=== PATIENT | male | born 1955 | race Caucasian/White ===

== ENCOUNTER 2023-11-02 12:03 | Emergency (ER) | payer MEDICARE, OTHER, SELFPAY ==
[2023-11-02 12:14] VITALS: BP 163/79; PULSE 63; RESP 18; TEMP 36.3; O2SAT 98; BMI 33.8
--- NOTE | 2023-11-02 12:14 | ED_ITS ---
HPI - General Adult General Chief complaint: Abdominal Pain Stated complaint: multiple complaints Time Seen by Provider: 11/02/23 12:27 Source: patient Mode of arrival: ambulatory Limitations: other (not forthcoming) History of Present Illness ED Provider: JAMIE ESCOBEDO narrative: 68 yo male with PMH of DM and ascites that he states he has from diabetes and not cirrhosis then start to talk about a paracentesis 10 years ago that only took 2 hours and they removed 8 liters without needing albumin or infusion and I should be able to make a phone call to get old labs. He then states if I do not do what he wants he is going to leave and goes off on tangents about his sick dog and needing to drive his family around. He states I am not helping him. I told him I am by not rushing into a procedure to hurt you or doing it without precautions or treating you correctly after. He then states you would do it wrong anyways. I did ask him about ETOH or hep C he denies both states he never saw a GI doctor but he notes medications that most cirrhotics would be on. He is withholding of a lot of information. He states he needs the fluid gone today because it is making his chronic hernias hurt but notes he has paracentesis due on the . He denies being on thinners but then states he can't name all of his medications. He is very demanding and unrealistic. When he found out he could be in the ED with workup for 4 to 6 hours for total time of labs/procedure/post procedure monitoring he demanded his line be removed and refused all papers. complaint: ascites Onset (ago): week(s) Location: abdomen Radiation: non-radiation Severity: severe Quality: dull Pain Consistency: intermittent Relieving factors: none Exacerbating factors: none Associated symptoms: denies other symptoms Treatments prior to arrival: none Related Data Allergies Allergy/AdvReac Type Severity Reaction Status Date / Time No Known Allergies Allergy Verified 11/02/23 12:18 Review of Systems 2 Review of Systems: Constitutional : No Weight loss, No Fever, No Chills ENT/Mouth : No sore throat, No Rhinorrhea Eyes: No Swelling, No Redness Cardiovascular : No Chest Pain, No SOB, NoEdema Respiratory : No Cough, No Sputum, No Wheezing Gastrointestinal : no Nausea, no Vomiting, no Diarrhea, no abdominal Pain, No Hematochezia, No Melena, large volume ascites Genitourinary : No Dysuria, No Urinary Frequency, No Hematuria, No Urgency Musculoskeletal : No joint pain, No Myalgias, No Joint Swelling Skin : No Skin Lesions, No rash Neuro : No Weakness, No Numbness, No Dizziness, No Headache Psych : No Anxiety/Panic, No Depression All other systems reviewed and are negative. FOR[facility]LY [facility], [facility] Past Medical History Attestation statement: The following information was validated with the patient. Source: old records reviewed Medical History (Updated 11/02/23 @ 13:07 by Xochitl Liriano DO) Diabetes Ascites Social History Social History (Updated 11/02/23 @ 13:02 by Xochitl Liriano DO) Alcohol intake: current Alcohol intake frequency: holidays/special occasions only Smoked in Last 30 Days: No Use of substances other than those prescribed or required for medical reasons: No Advance Directives: No Advance Directives Information Provided: Yes Do you have a plan to hurt others: No Plan Physical Exam ED Vital Signs: Vital Signs - 24 hr 11/02/23 12:14 11/02/23 13:10 Temperature 97.4 F 97.4 F Pulse Rate 63 79 Respiratory Rate 18 18 Blood Pressure 163/79 H 145/78 H Pulse Oximetry 98 97 Oxygen Delivery Method Room Air Room Air BMI result Body Mass Index 33.8 Appearance: Alert. Oriented X3. No acute distress. Dictating his care to the point of asking for paracentesis without lab results, IV access, or albumin infusion Eyes: Pupils equal, round and reactive to light. ENT: Pharynx normal. Neck: Normal inspection. Neck supple. CVS: Normal heart rate and rhythm. Pulses normal. Respiratory: No respiratory distress. Breath sounds normal. Abdomen: No ttp large volume ascites : bilateral soft reducible inguinal hernias Skin: Skin warm and dry. mild jaundice skin color. Normal skin turgor. Extremities: No lower extremity edema. Neuro: Oriented X 3. No motor deficit. No sensory deficit. Course Course Course Narrative: This is a Rapid Medical Exam performed in triage by Sangita Carbajal PA-C. Full HPI, ROS and PE to be performed by primary ED provider. 68 year-old M w/ PMHx presenting to the ED c/o hernia, DM, c/o abdominal pain & crushing pain in testicles from weight of abdomen. Also told he has a blood clot in vein unsure what vein at [facility] last week where he was seen for similar sx. States scheduled him for abdominal drainage on 11/14/23 however pain is too bad to wait. Denies ETOH use. PE: +abdominal ascites. nontender Plan: Labs, UA Medical Decision Making Medical Decision Making MDM Narrative: 68 yo male with DM and also mentions he is on lasix and spironolactone he is not very forthcoming and is edgy during the interview. He reports with his large volume of ascites 10 years ago he came to this ER we drained it without labs removed 8L and he did not receive any fluids or albumin. He wants the same thing done today and if we cannot do that we are wasting his time and he is leaving. I tried to reason with him and explain we need labs, paracentesis and likely albumin post removal of fluid given the large volume it will be. He refuses and states he is not being helped here and is walking out. He is alert and oriented x 3. He reports he has walked out of [facility] as well for other issues. It is unreasonable to do large volume paracentesis without labs, IV access which he demanded be removed and no repletion of albumin as indicated for > 5L. He then states that it would be done wrong if I did it and that legal issues are hindering his care. At this time he is not a harm to himself or others he is not altered I do not see any signs of encephalopathy he just refuses to wait in the ED for more than 4 hours for his care. Can leave AMA - KOFI Ahn witnessed entire conversation Differential Diagnosis Differential Diagnoses: The differential diagnosis associated with the presentation includes large volume paracentesis, advanced cirrhosis Admission/Observation Consideration of admission/observation: Escalation of care including admission/observation considered patient refuses Lab Data [facility] Lab Attestation statement: I reviewed the patient's lab results. only CBC left AMA 11/02/23 12:38 11/02/23 12:38 Labs: Lab Results 11/02/23 Range/Units 12:38 WBC 6.0 (4.8-10.8) X10*3/uL RBC 4.54 L (4.60-5.80) X10*6/uL Hgb 14.4 (14.0-18.0) g/dl Hct 40.8 L (42.0-52.0) % MCV 89.9 (80.0-98.0) fL MCH 31.7 (27.0-33.0) pg MCHC 35.3 (31.0-36.0) g/dl RDW 13.3 (11.0-16.0) % Plt Count 79 L (160-400) X10*3/uL MPV 10.9 (9.4-12.4) fL Immature Gran % (Auto) 0.7 H (0.0-0.4) % Neut % (Auto) 84.3 H (45-73) % Lymph % (Auto) 8.7 L (20-40) % [place] % (Auto) 5.4 (2-11) % Eos % (Auto) 0.7 (0-4) % Baso % (Auto) 0.2 (0-2) % Lymph # (Auto) 0.5 L (1.2-4.9) X10*3/uL [place] # (Auto) 0.3 (0.1-1.2) X10*3/uL Eos # (Auto) 0.0 (0.0-0.4) X10*3/uL Baso # (Auto) 0.0 (0.0-0.2) X10*3/uL Abs Immat Gran (auto) 0.04 H (0.00-0.03) X10*3/uL Absolute Neuts (auto) 5.0 (2.0-8.3) x10*3/uL Absolute Nucleated RBC 0.000 (0.0-0.012) X10*3/uL Nucleated RBC % (auto) 0.0 (0.0-0.2) /100WBC PT 13.5 H (11.1-13.3) SEC INR 1.1 (0.9-1.1) Sodium 134 L (135-145) mmol/L Potassium 4.3 (3.3-5.1) mmol/L Chloride 96 (96-108) mmol/L Carbon Dioxide 26 (22-29) mmol/L Anion Gap 16 (12-20) BUN 13 (9-16) mg/dL Creatinine 0.79 (0.5-1.4) mg/dL Estim Creat Clear Calc 99.7 Estimated GFR > 60 Random Glucose 197 H (60-115) mg/dL Calcium 9.5 (8.4-10.2) mg/dL Magnesium 1.8 (1.6-2.6) mg/dL Total Bilirubin 1.3 H (0.0-1.0) mg/dL Direct Bilirubin 0.3 (0.0-0.5) mg/dL AST 27 (5-37) U/L ALT 16 (0-40) U/L Alkaline Phosphatase 221 H (39-117) U/L Ammonia 29 (13-55) umol/L B-Natriuretic Peptide 54 (<100) pg/mL Total Protein 6.8 (6.5-8.0) g/dL Albumin 3.8 (3.5-5.0) g/dL Lipase 22 (8-78) U/L Ethyl Alcohol < 10 mg/dL Independent Interpretation I performed an independent interpretation of an: Ultrasound (refused) Tests considered The following testing was considered but not selected: US and paracentesis refused both Discharge Plan Discharge Clinical Impression: Abdominal ascites Qualifiers: Ascites type: other type Qualified Code(s): R18.8 - Other ascites Patient Disposition: Left Against Medical Advice Instructions: Ascites (ED), Against Medical Advice (ED) Additional Instructions: you were offered labs, ultrasound and paracentesis. It was also recommended to get an infusion of albumin to prevent post paracentesis hypotension. you declined all therapies and work up. I advise you to contact your doctor and follow up as your presentation is very concerning. you can return at any time Interventions: ED Discharge Assessment Last Done: 11/02/23 13:10 Discharge Date/Time: 11/02/23 13:11 Print Language: Slovenian
[2023-11-02 12:43] LABS: MANUAL DIFF FLAG NO
[2023-11-02 12:46] LABS: Basophils Percent Auto 0.2 % (0-2); Eosinophils Percent Auto 0.7 % (0-4); Hematocrit 40.8 % (42.0-52.0); Hemoglobin 14.4 g/dl (14.0-18.0); Imm Gran Abs Auto 0.04 X10*3/uL (0.00-0.03); Imm Gran Pct Auto 0.7 % (0.0-0.4); Lymphocytes Absolute Auto 0.5 X10*3/uL (1.2-4.9); Lymphocytes Percent Auto 8.7 % (20-40); Mean Corpuscular HGB Conc 35.3 g/dl (31.0-36.0); Mean Corpuscular Hemoglobin 31.7 pg (27.0-33.0); Mean Corpuscular Volume 89.9 fL (80.0-98.0); Mean Platelet Volume 10.9 fL (9.4-12.4); Monocytes Absolute Auto 0.3 X10*3/uL (0.1-1.2); Monocytes Percent Auto 5.4 % (2-11); Neutrophils Percent Auto 84.3 % (45-73); Red Blood Count 4.54 X10*6/uL (4.60-5.80); Red Cell Distribution Width 13.3 % (11.0-16.0)
[2023-11-02 12:49] LABS: Platelet Count 79 X10*3/uL (160-400)
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
[2023-11-02 12:56] LABS: INTERNATIONAL NORM RATIO 1.1 (0.9-1.1); Prothrombin Time 13.5 SEC (11.1-13.3)
[2023-11-02 13:10] VITALS: BP 145/78; PULSE 79; RESP 18; TEMP 36.3; O2SAT 97
[2023-11-02 13:29] LABS: Ammonia 29 umol/L (13-55)
[2023-11-02 13:36] LABS: Alanine Aminotransferase 16 U/L (0-40); Albumin Level 3.8 g/dL (3.5-5.0); Alkaline Phosphatase 221 U/L (39-117); Anion Gap 16 (12-20); Aspartate Amino Transferase 27 U/L (5-37); Bilirubin Direct 0.3 mg/dL (0.0-0.5); Bilirubin Total 1.3 mg/dL (0.0-1.0); Blood Urea Nitrogen 13 mg/dL (9-16); Calcium 9.5 mg/dL (8.4-10.2); Carbon Dioxide 26 mmol/L (22-29); Chloride 96 mmol/L (96-108); Creatinine Clr Calc Pharmacy 99.7; Estimated Glomerular Filt Rate > 60; Ethanol < 10 mg/dL; Glucose Random 197 mg/dL (60-115); Lipase 22 U/L (8-78); Magnesium 1.8 mg/dL (1.6-2.6); Potassium 4.3 mmol/L (3.3-5.1); Sodium 134 mmol/L (135-145); Total Protein 6.8 g/dL (6.5-8.0)
[2023-11-02 13:38] LABS: B Type Natriuretic Peptide 54 pg/mL (<100)
== END 2023-11-02 13:11 | disposition left against medical advice (07) ==
PROVIDERS: Physician Assistant; Emergency Provider Emergency Medicine; PCP Internal Medicine
DX: R18.8 Other ascites (principal); E11.9 Type 2 diabetes mellitus without complications; Z53.29 Procedure and treatment not carried out because of patient's decision for other reasons
CPT/HCPCS: 36415; 80048; 80076; 80307; 82140; 83690; 83735; 83880; 85025; 85610; 99283; 99284

== ENCOUNTER 2024-12-30 10:11 | Outpatient (REF) | payer OTHER, MEDICARE, SELFPAY ==
[2024-12-30 13:15] LABS: MANUAL DIFF FLAG NO
[2024-12-30 13:24] LABS: Appearance Urine Clear; Glucose Urine UA Negative (Negative); PH 6.0 (5.0-9.0); Specific Gravity - Urine 1.010 (1.005-1.025)
[2024-12-30 13:42] LABS: Hematocrit 42.4 % (42.0-52.0); Hemoglobin 14.7 g/dl (14.0-18.0); Imm Gran Abs Auto 0.02 X10*3/uL (0.00-0.03); Imm Gran Pct Auto 0.4 % (0.0-0.4); Lymphocytes Absolute Auto 0.5 X10*3/uL (1.2-4.9); Mean Corpuscular HGB Conc 34.7 g/dl (31.0-36.0); Mean Corpuscular Hemoglobin 32.0 pg (27.0-33.0); Mean Corpuscular Volume 92.4 fL (80.0-98.0); NRBC Abs Auto 0.000 X10*3/uL (0.0-0.012); NRBC Pct Auto 0.0 /100WBC (0.0-0.2); Platelet Count 50 X10*3/uL (160-400); Red Blood Count 4.59 X10*6/uL (4.60-5.80); White Blood Count 5.1 X10*3/uL (4.8-10.8)
[2024-12-30 13:45] LABS: Total Hemoglobin (HGBA1C) 3844.2955 umol/L
[2024-12-30 14:10] LABS: Microalbum/Creatinine Ratio Ur 11.2 ug/mg cr (<30)
[2024-12-30 18:59] LABS: Alanine Aminotransferase 28 U/L (0-40); Albumin Level 4.4 g/dL (3.5-5.0); Alkaline Phosphatase 147 U/L (39-117); Anion Gap 13 (12-20); Aspartate Amino Transferase 32 U/L (5-37); Blood Urea Nitrogen 15 mg/dL (9-16); Calcium 9.2 mg/dL (8.4-10.2); Carbon Dioxide 28 mmol/L (22-29); Chloride 97 mmol/L (96-108); Cholesterol 184 mg/dL (<200); Estimated Glomerular Filt Rate > 60; HDL Cholesterol 48 mg/dL (>40); Magnesium 2.0 mg/dL (1.6-2.6); Potassium 4.3 mmol/L (3.3-5.1); Sodium 134 mmol/L (135-145); Total Protein 6.7 g/dL (6.5-8.0); Triglycerides 131 mg/dL (<150)
[2024-12-30 19:17] LABS: Folate 15.5 ng/mL (> or = 4.0); Vitamin B12 420 pg/mL (200-900)
[2024-12-31 03:51] LABS: Syphilis Screen Nonreactive (Nonreactive)
[2024-12-31 04:52] LABS: HBS Num1 0.52 mIU/mL (0-7.99); HBsAGNum1 0.26 S/CO (0.00-0.99); HIV Num 1 0.06 S/CO (0.00-0.99); Hepatitis B Surface Antigen Negative (Negative); ~HepC Num1 0.07 S/CO (0.00-0.79); ~Hepatitis B Surface Antibody NONREACTIVE (Nonreactive); ~Hepatitis C Antibody Nonreactive (Nonreactive)
[2025-01-11 05:09] LABS: VITAMIN D (1,25 OH) D3 32 pg/mL; Vit D (1,25-Dihydroxy) Total 32 pg/mL (18-72); Vitamin D (1,25 OH) D2 <8 pg/mL
== END 2024-12-30 10:12 | disposition home or self-care (01) ==
LOC: HO.HKASLDS 10:11
PROVIDERS: PCP Internal Medicine; Visit Provider Student in an Organized Health Care Education/Training Program
DX: Z76.89 Persons encountering health services in other specified circumstances (principal); Z13.9 Encounter for screening, unspecified; Z71.9 Counseling, unspecified; Z13.6 Encounter for screening for cardiovascular disorders; Z13.220 Encounter for screening for lipoid disorders; Z13.31 Encounter for screening for depression; Z11.4 Encounter for screening for human immunodeficiency virus [HIV]; Z11.3 Encounter for screening for infections with a predominantly sexual mode of transmission; F43.20 Adjustment disorder, unspecified; R18.8 Other ascites; E66.3 Overweight; Z68.28 Body mass index [BMI] 28.0-28.9, adult
CPT/HCPCS: 36415; 80053; 80061; 81003; 82043; 82570; 82607; 82652; 82746; 83036; 83735; 84443; 85025; 86706; 86780; 86803; 87340; 87389; 96127

== ENCOUNTER 2024-12-30 10:11 | Outpatient (AMB) | payer MEDICARE, SELFPAY ==
--- NOTE | 2024-12-30 10:32 | A.OFFPC_ITS ---
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 Commercial Credit Reviewer Required: No Accompanied by: Self / Same As Patient Allergies No Known Allergies Allergy (Verified 12/30/24 10:33) Tobacco use date assessed: 12/30/24 Fall risk assessment: 1 Fall in past year Last assessed Fall Risk: 12/30/24 Dental Screening Dental Screen Date: 12/30/24 Did you have a dental visit in the last 12 months?: No Did you have a dental problem in the last 6 months where you did not have access to dental care?: No Was dental information given to patient?: Patient has dentist HPI HPI Comments History of Present Illness Details History of Present Illness The patient is a 69-year-old male presenting to [facility] and main complaint of Restless Leg Syndrome Restless Leg Syndrome: - The patient reports using gabapentin f or Restless Leg Syndrome, initially prescribed by Emelyn Figueroa. - The patient experienced adverse effect s after taking three pills, leading to the cancellation of the prescription in April. - Since then, the patient has been exper iencing significant discomfort, walking for hours to alleviate leg pain. 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 - There is no history of alcoholism, but the patient was a heavy smoker for 49 years. Asthma: - The patient uses albuterol and montelu kast for asthma management. - No asthma attacks or emergency room vi sits in the past year. Diabetes Mellitus: - The patient manages diabetes with diet control and was previously on metfor min. - The patient is aware of the need to ad just diet based on blood sugar levels. Ascites: - The patient has a history of ascites a nd has undergone paracentesis three times, last in November of the previous year. - The patient reports no recent need for drainage since stopping metformin over a year ago. Review of Systems - Neurological: Reports restless legs, d enies other neurological symptoms. - Respiratory: Denies recent asthma margarita cks, reports use of albuterol and montelukast. - Gastrointestinal: Reports history of v arices, denies recent bleeding. - Endocrine: Reports diabetes, manages w ith diet, denies recent hypoglycemic episodes. 10-point ROS reviewed and negative excep t as noted in HPI Past Medical History - History of varices in the esophagus an d spleen for over 10 years. - History of heavy smoking for 49 years, quit 7 years ago. - History of diabetes mellitus, previous ly on metformin. - History of ascites with previous parac entesis. Health Maintenance - Baseline labs to be conducted includin g hemoglobin A1c, lipid profile, liver and kidney function tests. - Ultrasound of the abdomen to be perfor med. Physical Exam General: Well-appearing, in no acute distress. Vital signs: Within normal limits. HEENT: Normocephalic, atraumatic. PERRLA, EOMI. Conjunctiva clear, sclera anicteric. Oropharynx clear, mucous membranes moist soft palate has a yellowish tinge. TMs intact bilaterally. Neck: Supple, no lymphadenopathy, no thyromegaly, no JVD or carotid bruits. Cardiovascular: RRR, normal S1/S2, no murmurs, rubs, or gallops. Peripheral pulses 2+ and symmetric. No edema. Respiratory: Lungs clear to auscultation bilaterally, no wheezes, rales, or rhonchi. Normal effort. Abdomen: Soft, non-tender, distended. Normoactive bowel sounds. No hepatosplenomegaly, no masses. MSK: Full range of motion, no joint swelling or deformity. Normal gait. Skin: Warm, dry, intact. Scabbing on the forearm with giant blood blisters noted. Neuro: Alert and oriented x3. Cranial nerves II-XII intact. Strength 5/5 throughout. Sensation intact. Reflexes 2+ symmetric. Normal coordination and gait. Psych: Appropriate mood and affect. Normal judgment and insight. Plan 1. Restless legs syndrome G25.81 - Plan to review medical records to unde rstand previous management and adjust gabapentin dosage appropriately. - Consider alternative treatments if ermias apentin is not suitable. 2. Varices Of The Esophagus And Spleen - Continue monitoring for any signs of b leeding or complications. 3. Unspecified asthma, uncomplicated J45.909 - Continue current medications, albutero l and montelukast, as no recent exacerbations reported. 4. Type 2 diabetes mellitus without comp lications E11.9 HCC 19 - Monitor blood glucose levels and adjus t diet as necessary. - Conduct baseline labs to assess curren t status. 5. Other ascites R18.8 - Ultrasound of the abdomen to assess cu rrent status of ascites. - Monitor for any signs of fluid accumul ation. Discussion Notes During the visit, we discussed the management of Restless Leg Syndrome and the need for gabapentin. I explained the importance of reviewing past medical records to adjust the medication dosage appropriately. We also talked about the necessity of conducting baseline labs to monitor diabetes and other health parameters. An ultrasound of the abdomen was recommended to assess the status of ascites. Follow-up was advised within one to two weeks to review the results and adjust the treatment plan accordingly. We will consider referral for colonoscopy on next visit Patient was informed and verbally consented to the use of an ambient scribe for clinic note documentation during this visit. Patient Instructions - Continue taking current medications as prescribed. - Schedule an ultrasound of the abdomen as soon as possible. - Follow up in one to two weeks to revie w lab results and adjust treatment plan. - Monitor blood sugar levels and adjust diet as needed. [facility] Medical History (Updated 12/30/24 @ 11:00 by Erick Noel MD) Establishing care with new doctor, encounter for Diabetes Ascites Family History (Updated 12/30/24 @ 10:49 by Gilles Bradford MA) Father Dementia Lung cancer Mother Heart attack Diabetes Social History (Updated 12/30/24 @ 10:36 by Gilles Bradford MA) Housing: Apartment Alcohol intake: current Alcohol intake frequency: holidays/special occasions only Patient Tobacco Use Status: Never used Tobacco Substance Use Type: Marijuana service: No Current occupational status: retired Cognitive needs: No Hearing needs: No Vision needs: No Questionnaire PHQ-9 Over the last 2 weeks, how often have you been bothered by any of the following problems? 1. Little interest or pleasure in doing things: not at all 2. Feeling down, depressed, or hopeless: several days 3. Trouble falling or staying asleep, or sleeping too much: not at all 4. Feeling tired or having little energy: nearly every day 5. Poor appetite or overeating: nearly every day 6. Feeling bad about yourself - or that you are a failure or have let yourself or your family down: not at all 7. Trouble concentrating on things, such as reading the newspaper or watching television: not at all 8. Moving or speaking so slowly that other people could have noticed. Or the opposite - being so fidgety or restless that you have been moving around a lot more than usual: not at all 9. Thoughts that you would be better off or of hurting yourself in some way: several days Total score: 8 Depression Screening Interpretation: Negative Depression Screening Done: Yes Source: Developed by Drs. Amrit Chen, Nadine Zarate, Yvan Hope and colleagues, with an educational gary from [employer]. Thrive Questionnaire Date Thrive assessed: 12/30/24 I am a: Patient What is your living situation today?: I have a steady place to live Within the past 12 months, did the food you bought not last and you didn't have the money to get more?: Never true Within the past 12 months, did you worry whether your food would run out before you got money to buy more?: Never true Do you have trouble paying for medicines?: No Do you have trouble getting transportation to medical appointments?: No Do you have trouble paying your heating and electricity bill?: No Do you have trouble taking care of your child, family member or friend?: No Are you currently unemployed and looking for a job?: No Are you interested in more education?: Yes Please select the resources that you would like help with: None Currently or been in a relationship where the following occur: I choose not to answer THRIVE Score: 0 AUDIT C Alcohol Use Questionnaire (AUDIT-C) 1. How often do you have a drink containing alcohol?: Never Total Score: 0 JESICA-7 AMB Questionnaire JESICA-7 Date JESICA - 7 assessed: 12/30/24 Feeling nervous, anxious, or on edge: 3 = Nearly every day Not being able to stop or control worryin = Nearly every day Worrying too much about different things: 0 = Not at all Trouble relaxin = Not at all Being so restless that it is hard to sit still: 3 = Nearly every day Becoming easily annoyed or irritable: 3 = Nearly every day Feeling afraid as if something awful might happen: 0 = Not at all Total JESICA-7 score (0-4 normal; 5-9 mild; 10-14 moderate; 15-21 severe): 12 Source: Developed by Drs. Amrit Chen, Nadine Zarate, Yvan Hope and colleagues, with an educational gary from [employer]. Physical exam (Primary Care) Vital Signs: Last Vital Signs Resp 16 12/30/24 10:37 BMI result Body Mass Index 28.1 Tobacco/Smoking Status: Tobacco use Status Tobacco use date assessed 12/30/24 12/30/24 10:36 Patient Tobacco Use Status Never used Tobacco 12/30/24 10:36 PHQ-9: PHQ-9 Score PHQ-9: Total score 8 12/30/24 10:41 Depression Screening Interpretation: Negative Thrive Assessment: Date of Thrive Assessment Date Thrive assessed 12/30/24 12/30/24 10:36 Currently or been in a relationship where the following occur: I choose not to answer Coding Level of Care Code New Pt Level 3 (29878) Diagnoses Establishing care with new doctor, encounter for Z76.89 Encounter for screening, unspecified Z13.9 Counseling, unspecified Z71.9 Screening for hypertension Z13.6 Screening for lipoid disorders Z13.220 Screening for depression Z13.31 Screening for HIV (human immunodeficiency virus) Z11.4 Routine screening for STI (sexually transmitted infection) Z11.3 Adjustment disorder F43.20 Overweight (BMI 25.0-29.9) E66.3 Ascites R18.8 Assessment & Plan Assessment & Plan (1) Establishing care with new doctor, encounter for: Code(s): Z76.89 - Persons encountering health services in other specified circumstances Category: Medical (2) Encounter for screening, unspecified: Code(s): Z13.9 - Encounter for screening, unspecified (3) Counseling, unspecified: Code(s): Z71.9 - Counseling, unspecified (4) Screening for hypertension: Code(s): Z13.6 - Encounter for screening for cardiovascular disorders (5) Screening for lipoid disorders: Code(s): Z13.220 - Encounter for screening for lipoid disorders (6) Screening for depression: Code(s): Z13.31 - Encounter for screening for depression (7) Screening for HIV (human immunodeficiency virus): Code(s): Z11.4 - Encounter for screening for human immunodeficiency virus [HIV] (8) Routine screening for STI (sexually transmitted infection): Code(s): Z11.3 - Encounter for screening for infections with a predominantly sexual mode of transmission (9) Adjustment disorder: Code(s): F43.20 - Adjustment disorder, unspecified (10) Overweight (BMI 25.0-29.9): Code(s): E66.3 - Overweight (11) Ascites: Code(s): R18.8 - Other ascites Category: Medical Plan Orders: Orders Hepatitis B Surface Antigen Today Z13.9 - Encounter for screening, unspecified, Z76.89 - Persons encountering health services in other specified circumstances Hepatitis C Antibody Today Z13.9 - Encounter for screening, unspecified, Z76.89 - Persons encountering health services in other specified circumstances HIV Ab/Ag Today Z13.9 - Encounter for screening, unspecified, Z76.89 - Persons encountering health services in other specified circumstances UA CC w/rflx Micro + Cult Today Z13.9 - Encounter for screening, unspecified, Z76.89 - Persons encountering health services in other specified circumstances Microalbumin, Random (w Creat) Today Z13.9 - Encounter for screening, unspecified, Z76.89 - Persons encountering health services in other specified circumstances Complete Blood Count Auto Diff Today Z13.9 - Encounter for screening, unspeci fied, Z76.89 - Persons encountering health services in other specified circumstances Comprehensive Met. Panel Today Z13.9 - Encounter for screening, unspecified, Z76.89 - Persons encountering health services in other specified circumstances Hemoglobin A1c Today Z13.9 - Encounter for screening, unspecified, Z76.89 - Persons encountering health services in other specified circumstances Hepatitis B Surface Antibody Today Z13.9 - Encounter for screening, unspecified, Z76.89 - Persons encountering health services in other specified circumstances Lipid Panel Today Z13.9 - Encounter for screening, unspecified, Z76.89 - Persons encountering health services in other specified circumstances Magnesium Today Z13.9 - Encounter for screening, unspecified, Z76.89 - Persons encountering health services in other specified circumstances Syphilis Screen Today Z13.9 - Encounter for screening, unspecified, Z76.89 - Persons encountering health services in other specified circumstances TSH reflex Free T4 Today Z13.9 - Encounter for screening, unspecified, Z76.89 - Persons encountering health services in other specified circumstances Vitamin B12 and Folate Today Z13.9 - Encounter for screening, unspecified, Z76.89 - Persons encountering health services in other specified circumstances Vitamin D 1,25 dihydroxy Today Z13.9 - Encounter for screening, unspecified, Z76.89 - Persons encountering health services in other specified circumstances US abdomen complete Today R18.8 - Other ascites
[2024-12-30 10:37] VITALS: BP 118/70; PULSE 57; RESP 16; TEMP 36.6; O2SAT 97; BMI 28.1
--- OUTSIDE RECORDS SUMMARY | 2024-12-30 12:29 | XMS_ITS | Clinical Summary ---
Author Organization [facility] Address [address] [place] [address] Care Team Providers Care Nursery Teacher Name Role Phone Unavailable Primary Care Provider Unavailabl e Source Comments PLEASE NOTE, if this patient is a minor, it may be UNLAWFUL to discuss sensitive information that is contained in these records (such as FAMILY PLANNING, MENTAL HEALTH or SUBSTANCE ABUSE) with the minor patient's parent or other person without the patient's specific authorization.[facility] Social History Tobacco Use Types Packs/Day Years Used Date Smoking Tobacco: Never Assessed Social Connections Answer Date Recorded Social Connections and Isolation 0 07/13/2019 Financial Resource Strain Answer Date R ecorded Financial Resource Strain 0 2019 Stress Answer Date Recorded Stress 0 07/13/2019 Physical Activity Answer Date Recorded Physical Activity 0 07/13/2019 Food Insecurity Answer Date Recorded Food 0 07/13/2019 Transportation Needs Answer Date Record ed Transportation 0 07/13/2019 Housing Stability Answer Date Recorded Housing 0 07/13/2019 Safety and Environment Answer Date Lester rded Safety 0 07/13/2019 Utilities Answer Date Recorded Utilities 0 07/13/2019 Employment Answer Date Recorded Employment 0 07/13/2019 Sex and Gender Information Value Date Recorded Sex Assigned at Not on file Legal Sex Male 5:50 AM PDT Gender Identity Not on file Sexual Orientation Not on file Plan of Treatment Not on file
--- OUTSIDE RECORDS SUMMARY | 2024-12-30 12:29 | XMS_ITS | Clinical Summary ---
Author Organization [facility] Address [address] [place] [address] Care Team Providers Care Aurist Name Role Phone Raúl Ferris MD Primary Care Provider [phone] Allergies No known active allergies Medications Medication Sig Dispensed Refills Start Date End Date Status glipiZIDE (GLUCOTROL) tablet 10 mg Take 10 mg by mouth 2 (two) times a day before breakfast and dinner. 0 Active metoprolol succinate (TOPROL-XL) 24 hr tablet 25 mg Take by mouth daily. 0 Active furosemide (Lasix) 40 MG tablet Take 40 mg by mouth 2 (two) times a day. 0 Active spironolactone (ALDACTONE) tablet 50 mg Take 100 mg by mouth daily. 0 Active montelukast (Singulair) 10 MG tablet Take 10 mg by mouth every night at bedtime. 0 Active omeprazole (PriLOSEC) 20 MG capsule Take 20 mg by mouth daily. 0 Active Family History Relation Name Status Comments Father Social History Tobacco Use Types Packs/Day Years Used Date Smoking Tobacco: Former Cigarettes 30 Q uit: 02/21/2018 Smokeless Tobacco: Never Alcohol Use Standard Drinks/Week Comments Not Currently 0 (1 standard drink = 0.6 oz pur e alcohol) Sex and Gender Information Value Date Recorded Sex Assigned at Not on file Gender Identity Not on file Sexual Orientation Not on file Job Start Date Occupation Industry Not on file Not on file Not on file Last Filed Vital Signs Vital Sign Reading Time Taken Comments Blood Pressure 160/80 07/26/2021 10:43 AM EDT Pulse 96 07/26/2021 10:43 AM EDT Temperature 35.6 C (96 F) 07/26/2021 10:43 AM EDT Respiratory Rate - - Oxygen Saturation 98% 07/26/2021 10:43 AM EDT Inhaled Oxygen Concentration - - Weight 115.2 kg (254 lb) 02/21/2021 1:37 PM EST Height 172.7 cm (5' 8 ) 02/21/2021 1:37 PM EST Body Mass Index 38.62 02/21/2021 1:37 PM EST Plan of Treatment Health Maintenance Due Date Last Done Comments Hepatitis C Screening 1955 Depression Screening 1967 Preventative Health Evaluation 11/01/1973 Colon Cancer Screening (Colonoscopy) 11/01/2000 Shingrix-Zoster Vaccine (1 o f 2) 11/01/2005 DTap / Tdap / Td (1 - Tdap) 06/14/2007 06/13/2007 Fall Risk Assessment 11/01/2020 Pneumococcal Vaccine (2 of 2 - PCV) 11/01/2020 04/08/2005 COVID-19 Vaccine (4 - 2024-2 6 season) 2024 07/05/2021, 09/12/2020, 08/22/2020 Influenza Vaccine (#1) 2024 4, 12/27/2009, 01/05/2008 RSV Adult > 60+ Yrs or (1 - 1-dose 75+ series) 11/01/2030 Hepatitis B Vaccines Aged Out No long er eligible based on patient's age to complete this topic RSV Ped < 20 months Aged Out No longe r eligible based on patient's age to complete this topic Care Teams Aurist Relationship Specialty Start Date End Date Raúl Ferris MD PCP - General Internal Medicine 03/28/21
--- OUTSIDE RECORDS SUMMARY | 2024-12-30 12:29 | XMS_ITS ---
Author Name [facility] Organization Unknown Encounters Encounter Type Encounter Reason Primary Diagnosis Location Date Ambulatory [facility] 01/17/2024 Care Team Organization Name Specialty Phone Email Start Date End Da [facility] 11/25/2024 [facility] 08/01/2024 [facility] Bubba White Primary Care 12/13/202211/24 [facility] ANASTASIA GLASS Primary Care 02/13/2022
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
--- OUTSIDE RECORDS SUMMARY | 2024-12-30 12:29 | XMS_ITS | Clinical Summary ---
Author Organization [facility] Address [address] [place] [address] Phone Care Team Providers Care Union Representative Name Role Phone Unavailable Primary Care Provider Unavailabl e Allergies No known active allergies Medications diclofenac (VOLTAREN) 1 % topical gel Apply 4 g topically. 2 Active spironolactone (ALDACTONE) 100 mg tablet Take 1 tablet (100 mg total) by mouth 2 (two) times a day. 3 Active albuterol HFA (Ventolin HFA) 90 mcg/actuation inhaler Inhale 2 puffs by mouth every 6 (six) hours if needed for wheezing or shortness of breath. 8 g 1 4 03/12/20 25 Active rOPINIRole (REQUIP) 0.25 mg tabletIndicatio ns:restless leg syndrome Take 1 tablet (0.25 mg total) by mouth at bedtime. 90 each 5 Active Additional Information Patient not taking.Reported on 08/21/2024 omeprazole (PriLOSEC) [address] capsule Take 1 capsule by mouth once daily 90 capsule 1 5 Active gabapentin (NEURONTIN) 300 mg capsule Take 1 capsule (300 mg total) by mouth if needed. Active metoprolol succinate (TOPROL-XL) 25 mg 24 hr tablet Take 1 tablet (25 mg total) by mouth 1 (one) time each day. 90 tablet 5 Active montelukast (SINGULAIR) 10 mg tablet Take 1 tablet (10 mg total) by mouth at bedtime. 90 tablet 5 Active folic acid (FOLVITE) 1 mg tablet Take 1 tablet (1,000 mcg total) by mouth 1 (one) time each day. 90 tablet 5 Active furosemide (LASIX) 40 mg tablet Take 1 tablet (40 mg total) by mouth 1 (one) time each day. 90 tablet 5 Active Active Problems Problem Noted Date Diagnosed Date Diabetes mellitus, type 2 ([facility], [facility]) 01/15/2024 Morbid obesity ([facility], [facility]) 2023 Bilateral hearing loss 12/05/2023 Bilateral inguinal hernia without obstruction or gangrene 12/05/2023 Chronic obstructive pulmonar y disease ([facility], [facility]) 12/05/2023 Tinnitus of both ears 12/05/2023 Primary hypertension 02/14/2023 Assessment & Plan (08/21/2024 12:53 PM EDT): It appears that the patient may have been sent here for hypertension issues but his blood pressure is well-controlled on medical management Orders: Ambulatory referral to Cardiology ECG 12 lead Onychomycosis of multiple to enails with type 2 diabetes mellitus and peripheral angiopathy ([facility], [facility]) 01/03/2022 Tobacco dependence syndrome 08/07/2021 Lumbar radiculopathy 03/29/2021 Overview (01/15/2024): [facility] Severe obesity (BMI 35.0-39. 9) with comorbidity ([facility]) 06/15/2020 Esophageal varices determine d by endoscopy ([facility], [facility]) 02/14/2018 Overview (01/15/2024): Upper endoscopy, 12/13/2017 Portal vein thrombosis 11/29/2017 Overview (01/15/2024): Noted on ultrasound of 11/26/2017. PAD (peripheral artery disease) ([facility]) Assessment & Plan (04/28/2024 11:40 AM EST): Patient denied claudications and and is able to walk a block or more. Lower extremity pulses are decreased. I was unable to palpate DP. I will refer patient to vascular service for further management especially due to his current symptoms and risk factors. Will start patient on statin and aspirin therapy Exercise: patient is to walk 1 hour/day; Stopping during pain and resuming when pain subside to develop collateral circulation No acute limb ischemia noted, Patient advise to seek emergency service if developed sever pain, numbness, cold extremities, blacken skin of the leg or feet. Patient was advised to call the office if she develops any pain, redness, warmth and swelling to the lower extremity. Patient understand plan; patient agree with plan. Orders: Ambulatory referral to Vascular Surgery; Future Hemoglobin A1c; Future atorvastatin (LIPITOR) 10 mg tablet; Take 1 tablet (10 mg total) by mouth 1 (one) time each day. aspirin 81 mg EC tablet; Take 1 tablet (81 mg total) by mouth 1 (one) time each day. Dysthymic disorder 12/28/2013 Cirrhosis ([facility] V24, [facility] V28) 12/21/2013 Assessment & Plan (04/02/2024 12:57 PM EST): 68-year-old gentleman presents with a amount of bleeding from his umbilicus this morning. He also had some irritation and discomfort, he had been sticking a Q- tip to explore the area. On exam, his umbilicus is mildly erythematous, but there is no evidence of any active bleeding. I do see some dried blood. I cleaned the area with some normal saline, and gently used a Q-tip to try to fully visualize the area, but I could not find the source of bleeding. With the patient's cirrhosis, portal hypertension seems like the most likely cause. He tells me he saw his GI doctor in December and has up-to-date abdominal imaging. I will check some labs including a PT and PTT as well as platelets, and refer him back to his GI team. I discussed with the patient that if he has any heavy umbilical bleeding, he may need to go to the emergency department to have this treated. He is asked to alert me of any recurrence, and he will keep a dressing on for the next few days. Advised the patient that he needs to let the area heal, and he should not try to manipulate the area any further at home. If it starts bleeding he should apply direct pressure for 10 minutes and then reassess. Discussed signs or symptoms of more immediate reevaluation. He voiced understanding and agree with the above plan. Because of his liver disease, I elected to check some basic labs as below. Of note, I do not I think the level of bleeding he had is enough to cause any significant anemia. He had no signs or symptoms to suggest he had a symptomatic anemia. Orders: Complete blood count; Future Comprehensive metabolic panel; Future Activated partial thromboplastin time; Future Prothrombin time with INR; Future Ambulatory referral to Gastroenterology; Future Generalized anxiety disorder 12/15/2013 Sebaceous cyst 11/26/2013 Ascites 08/24/2013 Overview (01/15/2024): [place] by Dr. Wilson to be due to cirrhosis. DM (diabetes mellitus), type 2 with peripheral vascular complications ([facility] V24, [facility] V28) 06/29/2013 Assessment & Plan (04/28/2024 11:40 AM EST): Patient is not on any current diabetic medications. I am unable to find a current A1c. A1c ordered. Patient current restless leg syndrome could be related to diabetic neuropathy as well as PAD. We discussed maintaining a low carb diet to optimize blood sugar levels (avoid sweet drinks/snacks, excess bread, pasta intake and replace red meat with chicken and fish and increase salad intake). Attempt exercise daily or at least 3 times a week for 30 min. Complications associated with uncontrolled diabetes includes, but are not limited to an increased risk of cardiovascular disease, retinopathy, neuropathy, renal disease, increased risk of infections with open wounds and amputations. Orders: Ambulatory referral to Vascular Surgery; Future Hemoglobin A1c; Future Comprehensive metabolic panel; Future Asthma 06/01/2013 Mixed hyperlipidemia 06/01/2013 Assessment & Plan (04/28/2024 11:40 AM EST): Last LDL 157. Cardiovascular risk and specific lipid/LDL goals reviewed. I discussed in context of patient risks of coronary artery disease which is associated with total cholesterol, high LDL and low HDL cholesterol. It was also discussed in the context of patient's family history CAD and [place]. I discussed Current concept linking hypercholesteremia with occlusive vascular disease. Discussed the current availability of medications to treat hypercholesteremia, and their potential side effects. The patient is informed that this type of drug is usually highly effective to lower LDL cholesterol and is usually very well tolerated. After long discussion and joint decision making the patient accepted statin therapy. Patient is to check liver function test 1 month after starting statin. Patient is asked to be alert for persistent nausea, abdominal pain, jaundice or pronounced persistent, diffuse muscle pain. Should such symptoms occur. The patient is to discontinue the drug immediately and let us know. I will recheck Lipid profile today Orders: Lipid panel with reflex to direct LDL; Future atorvastatin (LIPITOR) 10 mg tablet; Take 1 tablet (10 mg total) by mouth 1 (one) time each day. aspirin 81 mg EC tablet; Take 1 tablet (81 mg total) by mouth 1 (one) time each day. Migraine 06/01/2013 Marijuana use 06/01/2013 CARLA (obstructive sleep apnea) 06/01/2013 Overview (01/15/2024): NOT TREATED (JUNE 2020) Shoulder pain, left 04/26/2013 Encounters Date Type Department Care Team Description 2024 Telephone Adult Medicine [address] [address] Dre Elias MD from Last 3 Months Immunizations Name Administration Dates Next Due Influenza Whole 12/13/2011,01/20/2007 Influenza trivalent, 0.5mL, preservative free (Fluarix; FluLaval; Fluzone) ages 6mo and older (Afluria) 3 years and older 01/06/2014 Influenza trivalent, with pr eservative (Fluzone; Afluria) 6mo and older 12/27/2009,01/05/2008 AquaGenesis SARS-CoV-2 COVID-19, mRNA, LNP-S, preservative free 07/05/2021,09/12/2020,08/22/2020 Pneumococcal polysaccharide 23 valent (Pneumovax 23) 2yo and older 04/08/2005 Td Tetanus diptheria (Tdvax) 7yo and older 03/19 Td, Unspecified 06/13/2007 Surgical History Surgery Date Site/Laterality Comments OTHER SURGICAL HISTORY PROCEDURE: ---- OTHER ----; COMMENT: Cyst resection UPPER GASTROINTESTINAL ENDOSCOPY 12/13/2017 PROCEDURE: DC UPPER GI ENDOSCOPY PERFORMED; COMMENT: [email or web address]; small esophageal varices and mild portal hypertensive gastropathy. Medical History Medical History Date Comments Shoulder pain, left 04/26/2013 DX:Shoulder pain, left Cirrhosis (CMS/HCC V24, CMS/HCC V28) 12/21/2013 DX:Cirrhosis (HCC) Mixed hyperlipidemia 06/01/2013 DX:Mixed hy perlipidemia Ascites 08/24/2013 DX:Ascites; COMM ENT: [place] by Dr. Wilson to be due to cirrhosis. Asthma 06/01/2013 DX:Asthma CARLA (obstructive sleep apnea) 06/01/2013 DX :CARLA (obstructive sleep apnea) PAD (peripheral artery disea se) (CMS/HCC V24) 05/04/2016 DX:PAD (peripheral artery di sease) (HCC) DM (diabetes mellitus), type 2 with peripheral vascular complications (CMS/HCC V24, CMS/HCC V28) 06/29/2013 DX:DM (diabetes mellitus), type 2 with peripheral vascular complications (HCC) Essential hypertension DX:Essent ial hypertension Family History Medical History Relation Name Comments Leukemia Brother Lung cancer Father dementia Diabetes Mother Relation Name Status Comments Brother Daughter Alive Father Mother Social History Tobacco Use Types Packs/Day Years Used Date Smoking Tobacco: Former Cigarettes 0 12/25/2017 - 1969 Smokeless Tobacco: Never Tobacco Cessation:Counseling Given: Not Answered Alcohol Use Standard Drinks/Week Comments No 0 (1 standard drink = 0.6 oz pur e alcohol) Sex and Gender Information Value Date Recorded Sex Assigned at Not on file Legal Sex Male 8:00 AM EST Gender Identity Not on file Sexual Orientation Not on file Obstetrics History Last Filed Vital Signs Vital Sign Reading Time Taken Comments Blood Pressure 118/60 08/21/2024 10:31 AM EDT Pulse 69 05/06/2024 4:48 PM EST Temperature 36.4 C (97.6 F) 05/06/2024 4:48 PM EST Respiratory Rate 12 05/06/2024 4:48 PM EST Oxygen Saturation 98% 08/21/2024 10: 31 AM EDT Inhaled Oxygen Concentration - - Weight 83.8 kg (184 lb 11.2 oz) 025 10:31 AM EDT Height 172.7 cm (5' 8 ) 08/21/2024 10:3 1 AM EDT Body Mass Index 28.08 08/21/2024 10:31 AM EDT Plan of Treatment Health Maintenance Due Date Last Done Comments Diabetes: Annual Retina Eye Exam 11/01/1965 Hepatitis A Vaccines (1 of 2 - Risk 2-dose series) 11/01/1974 Zoster Vaccines (1 of 2) 11/01/2005 Pneumococcal Vaccine: 50+ Years (2 of 2 - PCV) 04/08/2006 04/08/2005 Hepatitis B Vaccines (1 of 3 - Risk 3-dose series) 2015 RSV Immunization Adult Patients (1 - Risk 60-74 years 1-dose series) 2015 Abdominal Aortic Aneurysm (AAA) Screen 03/15/2022 Colorectal Cancer Screening: Stool Based Tests (FOBT/FIT) 03/15/2022 Hepatitis C Screening 03/15/2022 Lung Cancer Screening (Low Dose CT) 03/15/2022 Medicare Annual Wellness Visit 03/15/2022 Social Influencers of Health Screening 03/15/2022 Depression Screening 04/08/2024 Diabetes: Annual Urine Albumin-Creatinine Ratio (uACR) 07/11/2024 07/12/2023 Diabetes: Blood Sugar Control Test (HGBA1C) 10/26/2024 04/28/2024 COVID-19 Vaccine ( - season) 2024 07/05/2021, 09/12/2020, 08/22/2020 Influenza Vaccine (#1) 2024 4, 12/13/2011, 12/27/2009, Additional history exists Diabetes: Annual Foot Exam 04/28/2025 04/28/2024 Diabetes: Annual GFR (Glomerular Filtration Rate) 04/28/2025 04/28/2024, 04/02/2024 Falls Risk Assessment 04/28/2025 04/28/2024 Hypertension/CHF/CAD Annual BMP Blood Test 04/28/2025 04/28/2024, 04/02/2024 Cholesterol Screening (Lipid Panel) 04/28/2029 04/28/2024 DTaP,Tdap,and Td Vaccines (4 - Td or Tdap) 12/30/2032 12/30/2022, 03/19/2016, 06/13/2007 HIB Vaccines Aged Out No longer eligi ble based on patient's age to complete this topic HPV Vaccines Aged Out No longer eligi ble based on patient's age to complete this topic IPV Vaccines Aged Out No longer eligi ble based on patient's age to complete this topic MMR Vaccines Aged Out No longer eligi ble based on patient's age to complete this topic Meningococcal ACWY Vaccine Aged Out N o longer eligible based on patient's age to complete this topic Meningococcal B Vaccine Aged Out No l onger eligible based on patient's age to complete this topic RSV Immunization Patients Under 20 months Aged Out No longer eligible based on patient's age to complete this topic Varicella Vaccines Aged Out No longer eligible based on patient's age to complete this topic Procedures Procedure Name Priority Date/Time Associated Diagnosis Comments COMPREHENSIVE METABOLIC PANEL Routine 04/28/2024 11:36 AM EST DM (diabetes mellitus), type 2 with peripheral vascular complications ([facility] V24, [facility] V28) PAD (peripheral artery disease) ([facility] V24) Restless leg syndrome Former smoker Encounter for screening for cardiovascular disorders HEMOGLOBIN A1C Routine 04/28/2024 11:36 AM EST DM (diabetes mellitus), type 2 with peripheral vascular complications ([facility]/HCC V24, CMS/HCC V28) PAD (peripheral artery disease) ([facility] V24) Restless leg syndrome Former smoker Encounter for screening for cardiovascular disorders LIPID PANEL WITH REFLEX TO DIRECT LDL Routine 04/28/2024 11:36 AM EST Encounter for screening for cardiovascular disorders from Last 3 Months or Most Recently Relevant to Health Maintenance Results * (ABNORMAL) Lipid panel with reflex to direct LDL (04/28/2024 11:36 AM EST) Cholesterol 224(H) 0 - 200 mg/dL LAB CHEMISTRY METHOD 04/28/2024 3:23 PM EST [facility] Triglycerides 138 0 - 150 mg/dL LAB CHEMISTRY METHOD 04/28/2024 3:23 PM EST [facility] HDL 70 >=40 mg/dL LAB CHEMISTRY METHOD 04/28/2024 3:23 PM [facility] LDL Calculated 126(H) 0 - 100 mg/dL LAB CHEMISTRY METHOD 04/28/2024 3:23 PM [facility] VLDL Cholesterol Jeferson 27.6 mg/dL LAB CHEMISTRY METHOD 04/28/2024 3:23 PM [facility] Non HDL Chol. (LDL+VLDL) 154(H) <145 mg/dL LAB CHEMISTRY METHOD 04/28/2024 3:23 PM [facility] Chol/HDL Ratio 3.2 0.0 - 4.4 LAB CHEMISTRY METHOD 04/28/2024 3:23 PM [facility] Blood Venous blood specimen / Unknown Venipuncture / Unknown 04/28/2024 11:36 AM EST 04/28/2024 11:36 AM EST Alexa Figueroa GENERAL MAINTENANCE HELPER LAB BLOOD ORDERABLES Final R esult Performing Organization Address City/[facility]/ZIP Co de Phone Number [facility] [address] [place] [address], [place] [phone] * Hemoglobin A1c (04/28/2024 11:36 AM EST) Hemoglobin A1C 6.3 <6.5 % LAB CHEMISTRY METHOD 04/28/2024 5:51 PM EST [facility] Mean Bld Glu Estim. 134 mg/dL LAB CHEMISTRY METHOD 04/28/2024 5:51 PM EST [facility] Blood Venous blood specimen / Unknown Venipuncture / Unknown 04/28/2024 11:36 AM EST 04/28/2024 11:36 AM EST Alexa Figueroa GENERAL MAINTENANCE HELPER LAB BLOOD ORDERABLES Final R esult Performing Organization Address City/[facility]/ZIP Co de Phone Number [facility] [address] [place] [address], [place] [phone] * (ABNORMAL) Comprehensive metabolic panel (04/28/2024 11:36 AM EST) Sodium 132(L) 133 - 145 mmol/L LAB CHEMISTRY METHOD 04/28/2024 3:23 PM [facility] Potassium 4.0 3.5 - 5.5 mmol/L LAB CHEMISTRY METHOD 04/28/2024 3:23 PM [facility] Chloride 95(L) 96 - 110 mmol/L LAB CHEMISTRY METHOD 04/28/2024 3:23 PM [facility] CO2 29 21 - 32 mmol/L LAB CHEMISTRY METHOD 04/28/2024 3:23 PM [facility] Anion Gap 8 3 - 11 LAB CHEMISTRY METHOD 04/28/2024 3:23 PM [facility] Glucose 190(H) 70 - 100 mg/dL LAB CHEMISTRY METHOD 04/28/2024 3:23 PM [facility] BUN 18 5 - 25 mg/dL LAB CHEMISTRY METHOD 04/28/2024 3:23 PM [facility] Creatinine 0.93 0.70 - 1.30 mg/dL LAB CHEMISTRY METHOD 04/28/2024 3:23 PM [facility] eGFR 89 >=60 mL/min/1. 73m2 LAB CHEMISTRY METHOD 04/28/2024 3:23 PM [facility] Comment:Calculation based on the Chronic Kidney Disease Epidemiology Collaboration (CKD-EPI) equation refit without adjustment for race. BUN/Creatinine Ratio 19.4 LAB CHEMISTRY METHOD 04/28/2024 3:23 PM [facility] Calcium 8.9 8.5 - 10.5 mg/dL LAB CHEMISTRY METHOD 04/28/2024 3:23 PM [facility] AST (SGOT) 33 10 - 42 unit/L LAB CHEMISTRY METHOD 04/28/2024 3:23 PM [facility] ALT (SGPT) 39 10 - 60 unit/L LAB CHEMISTRY METHOD 04/28/2024 3:23 PM EST [facility] Alkaline Phosphatase 228(H) 42 - 121 unit/L LAB CHEMISTRY METHOD 04/28/2024 3:23 PM EST [facility] Total Protein 7.7 6.0 - 8.0 g/dL LAB CHEMISTRY METHOD 04/28/2024 3:23 PM EST [facility] Albumin 4.2 3.2 - 5.0 g/dL LAB CHEMISTRY METHOD 04/28/2024 3:23 PM EST [facility] Total Bilirubin 1.5(H) 0.0 - 1.4 mg/dL LAB CHEMISTRY METHOD 04/28/2024 3:23 PM [facility] Blood Venous blood specimen / Unknown Venipuncture / Unknown 04/28/2024 11:36 AM EST 04/28/2024 11:36 AM EST Alexa Figueroa GENERAL MAINTENANCE HELPER LAB BLOOD ORDERABLES Final R esult [facility] [address] [place] [address], from Last 3 Months or Most Recently Relevant to [place] [phone] MEDICARE HUMAN
--- OUTSIDE RECORDS SUMMARY | 2024-12-30 12:29 | XMS_ITS | Patient Health Record ---
Author Organization [facility] Address [address] [place] [id number] Care Team Providers Care Radio Assembler Name Role Phone Krishan Kumar MD Primary Care Provider Unavail able Amrit Roper Unavailable [phone] Reason For Referral No Information Medications Medication SIG (Take, Route, Frequency, Duration) Notes Start Date End Date Status Ciclopirox 0.77 % 1 application to affected area Externally Twice a day/prn Active Furosemide 40 MG 1 tablet Orally Once a day for 90 days 06/15/2018 Active Spironolactone 25 MG 1 tablet Orally Onc e a day Active Montelukast Sodium 10 MG 1 tablet Orally Once a day for 30 day(s) Active Ipratropium-Albuterol 0.5-2.5 (3) MG/3ML 3 ml Inhalation every 6 hrs/prn Active Omeprazole 20 MG 1 capsule Orally Onc e a day for 30 day(s) Active Furosemide 40 MG 1 tablet Orally Once a day for 30 day(s) Active Furosemide 40 MG 1 tablet Orally Once a day for 30 day(s) 06/10/2018 Active Nadolol Active Triamcinolone Acetonide 0.1 % 1 application to affected area Externally Twice a day Active Immunizations Vaccine Route Administration Date Status Comme nts Influenza Unknown 05/21/2018 Refused Social History Tobacco Use: Social History Observation Description Date Details (start date - stop date) Former Smoker NA - NA Tobacco Use/Smoking Question Answer Notes Patient is a former smoker How long has it been since you last smoked? 3-6 months Alcohol Screen Question Answer Notes Did you have a drink contain ing alcohol in the past year? Yes How often did you have a dri nk containing alcohol in the past year? Monthly or less (1 point) How many drinks did you have on a typical day when you were drinking in the past year? 1 or 2 drinks (0 point) How often did you have 6 or more drinks on one occasion in the past year? Never (0 point) Points 1 Interpretation Negative Section Notes: Heavy beer drinker in his 20 's, but no significant alcohol since that time. Nonsmoker since 12/2017, but smokes marijuana. Problems Problem Type SNOMED Code ICD Code Onset Dates Problem Status W/U Status Risk Notes Problem 39525921 Portal vein thrombosis (I81) Active confirmed Problem 70017601 Secondary esophageal varices without bleeding (I85.10) Active confirmed Problem Unspecified cirrhosis of liver (K74.60) Active confirmed Problem Other cirrhosis of liver (K74.69) Active confirmed Problem 986453028 Other ascites (R18.8) Active confirmed Plan Of Treatment Pending Test Test Name Order Date US ABD 05/21/2018 HCVVL REFLEX GENOTYPE REFLEX NS5A 2018 Insurance Providers Payer Name Payer Address Payer Phone Subscriber Number Group Number Insured Name Patient Relationship to Insured Coverage Start Date Coverage End Date [facility] [address] [place] [address] [phone] [id number] YAKELIN MORALES Self - patient is the insured Medical (General) History Medical History History ICD Code Cirrhosis with ascites--last paracentesis was in 08/2013; portal vein thrombosis--he describes an EGD at [facility] with reported esophageal varices in 2018 Anxiety disorder Diet-controlled DM Hyperlipidemia Asthma/COPD Denies MS,CVA,renal disease Surgical History Surgery Date(Month/Year) Right wrist surgery
== END 2024-12-30 11:12 | disposition home or self-care (01) ==
LOC: HO.HMCFMS 10:11
PROVIDERS: PCP Student in an Organized Health Care Education/Training Program; Visit Provider Student in an Organized Health Care Education/Training Program
DX: F43.20 Adjustment disorder, unspecified (principal); R18.8 Other ascites; I85.00 Esophageal varices without bleeding; I86.4 Gastric varices; E66.3 Overweight

== ENCOUNTER 2025-01-13 09:47 | Outpatient (AMB) | payer MEDICARE, OTHER, SELFPAY ==
[2025-01-13 09:52] VITALS: BP 149/66; PULSE 56; RESP 16; TEMP 36.2; O2SAT 93; BMI 29.1
--- NOTE | 2025-01-13 09:52 | MHC.PC.OV ---
Vital Signs 01/13/25 09:52 Height 5 ft 8.5 in Weight 194 lb 8 oz BMI 29.1 BP 149/66 H Blood Pressure Location Rt brachial Position Sitting Respiration 16 Pulse 56 Pulse Source Pulse Oximeter Temp 97.2 F Temp Source Oral Pulse Oximetry (%) 93 Oxygen Delivery Method Room Air Intake Visit Reasons: 2 wk f/u Intake Note: med review and establish care. Reversal Print Inspector Required: No Accompanied by: Self / Same As Patient Allergies No Known Allergies Allergy (Verified 12/30/24 10:33) Tobacco use date assessed: 12/30/24 Fall risk assessment: 1 Fall in past year Last assessed Fall Risk: 12/30/24 Dental Screening Dental Screen Date: 12/30/24 Did you have a dental visit in the last 12 months?: No Did you have a dental problem in the last 6 months where you did not have access to dental care?: No Was dental information given to patient?: Patient has dentist HPI HPI Comments History of Present Illness Details History of Present Illness The patient is a 69-year-old male presenting with paresthesia of the right arm and numbness. Paresthesia of the right arm: - The patient reports numbness in the right arm extending to the neck, recurring seasonally for the past four years, starting in fall and subsiding by July. Restless leg syndrome: - The patient has a history of restless leg syndrome, previously discussed during initial care. Esophageal varices: - The patient has a history of esophageal varices, with previous medical advice given over ten years ago. Splenic varices: - The patient reports splenic varices, with limited information available from past records. Emphysema: - The patient has emphysema, attributed to a history of smoking 50 menthol cigarettes daily for 49 years, managed with albuterol and montelukast as needed. Ascites: - The patient has a history of ascites, with the last drainage performed in December, and no current symptoms suggesting the need for another drainage. Thrombocytopenia: - The patient has thrombocytopenia, with a platelet count of 50, previously 66 in 2019 and 79 in 2023, with no known family history of bleeding disorders. Prediabetes: - The patient has prediabetes, with a hemoglobin A1c of 6.2, managed through diet modifications without medication. Elevated liver enzymes: - The patient has mildly elevated liver enzymes, with plans for an abdominal ultrasound to assess liver health. Review of Systems - Neurological: Reports numbness in the right arm extending to the neck, seasonal onset. Reports restless leg syndrome. Denies headaches or dizziness. - Respiratory: Reports emphysema, uses albuterol and montelukast as needed. Denies current dyspnea or cough. - Gastrointestinal: Reports history of esophageal and splenic varices. Denies current abdominal pain or bleeding. - Endocrine: Reports prediabetes, managed with diet. Denies current symptoms of hyperglycemia. - Hematological: Reports easy bruising and thrombocytopenia. Denies excessive bleeding. 10-point ROS reviewed and negative except as noted in HPI Past Medical History - Emphysema, managed with albuterol and montelukast as needed. - Diabetes mellitus, previously managed with metformin, now managed with diet. - Ascites, with last drainage in December. - Thrombocytopenia, with a platelet count of 50. - Esophageal and splenic varices, with limited historical information available. Health Maintenance - Referral to neurology for paresthesia of the right arm and restless leg syndrome. - Referral to hematology for thrombocytopenia. - Referral to gastroenterology for esophageal varices. - Abdominal ultrasound pending to assess liver health due to elevated liver enzymes. Physical Exam General: Well-appearing, in no acute distress. Vital signs: Within normal limits. HEENT: Normocephalic, atraumatic. PERRLA, EOMI. Conjunctiva clear, sclera anicteric. Oropharynx clear, mucous membranes moist. TMs intact bilaterally. Neck: Supple, no lymphadenopathy, no thyromegaly, no JVD or carotid bruits. Cardiovascular: RRR, normal S1/S2, no murmurs, rubs, or gallops. Peripheral pulses 2+ and symmetric. No edema. Respiratory: Lungs clear to auscultation bilaterally, no wheezes, rales, or rhonchi. Normal effort. Abdomen: Soft, non-tender, non-distended. Normoactive bowel sounds. No hepatosplenomegaly, no masses. MSK: Full range of motion, no joint swelling or deformity. Normal gait. Skin: Warm, dry, intact. No rashes, lesions, or pallor. Neuro: Alert and oriented x3. Cranial nerves II-XII intact. Strength 5/5 throughout. Sensation intact except for numbness in the right arm extending to the neck. Reflexes 2+ symmetric. Normal coordination and gait. Psych: Appropriate mood and affect. Normal judgment and insight. Plan 1. Paresthesia Of The Right Arm - Referral to neurology for further evaluation and management of paresthesia. 2. Restless Leg Syndrome - Referral to neurology for management of restless leg syndrome. 3. Esophageal Varices - Referral to gastroenterology for evaluation and management of esophageal varices. 4. Splenic Varices - Referral to gastroenterology for evaluation and management of splenic varices. 5. Emphysema - Continue management with albuterol and montelukast as needed. 6. Ascites - Monitor for symptoms indicating the need for drainage of ascites. 7. Thrombocytopenia - Referral to hematology for evaluation of thrombocytopenia. 8. Prediabetes - Continue dietary management for prediabetes. 9. Elevated Liver Enzymes - Abdominal ultrasound pending to assess liver health. Discussion Notes During the visit, I discussed the need for referrals to neurology for the paresthesia and restless leg syndrome, hematology for thrombocytopenia, and gastroenterology for esophageal varices. We also talked about the importance of an abdominal ultrasound to evaluate the elevated liver enzymes. I emphasized the significance of dietary management for diabetes and prediabetes, and the patient was informed about the potential need for ascites drainage if symptoms arise. The patient was advised to follow up with the respective specialists and to monitor for any concerning symptoms. Patient was informed and verbally consented to the use of an ambient scribe for clinic note documentation during this visit. Patient Instructions - Follow up with neurology for evaluation of paresthesia and restless leg syndrome. - Schedule an appointment with hematology for thrombocytopenia assessment. - Consult with gastroenterology regarding esophageal varices. - Complete the abdominal ultrasound as scheduled to check liver health. - Continue dietary management for diabetes and prediabetes. - Monitor for symptoms of ascites and seek medical attention if needed Total time spent caring for the patient today was 30 minutes. This includes time spent before the visit reviewing the chart, time spent documenting, and time spent reviewing laboratory results, diagnostic imaging, medications, performing a medically necessary evaluation, counseling on diagnoses, care coordination, ordering appropriate tests, ordering appropriate medications. [facility] Medical History (Updated 01/13/25 @ 08:23 by Erick Noel MD) Esophageal varices Elevated liver enzymes Thrombocytopenia Establishing care with new doctor, encounter for Diabetes Ascites Family History Father Dementia Lung cancer Mother Heart attack Diabetes Social History (Reviewed 01/13/25 @ 09:52 by NAVEED Frederick Housing: Apartment Alcohol intake: current Alcohol intake frequency: holidays/special occasions only Patient Tobacco Use Status: Never used Tobacco Substance Use Type: Marijuana service: No Current occupational status: retired Cognitive needs: No Hearing needs: No Vision needs: No Questionnaire PHQ-9 Over the last 2 weeks, how often have you been bothered by any of the following problems? 1. Little interest or pleasure in doing things: not at all 2. Feeling down, depressed, or hopeless: several days 3. Trouble falling or staying asleep, or sleeping too much: not at all 4. Feeling tired or having little energy: nearly every day 5. Poor appetite or overeating: nearly every day 6. Feeling bad about yourself - or that you are a failure or have let yourself or your family down: not at all 7. Trouble concentrating on things, such as reading the newspaper or watching television: not at all 8. Moving or speaking so slowly that other people could have noticed. Or the opposite - being so fidgety or restless that you have been moving around a lot more than usual: not at all 9. Thoughts that you would be better off or of hurting yourself in some way: several days Total score: 8 Depression Screening Interpretation: Negative Depression Screening Done: Yes Source: Developed by Drs. Amrit Chen, Nadine Zarate, Yvan Hope and colleagues, with an educational gary from [employer]. Thrive Questionnaire Date Thrive assessed: 12/30/24 I am a: Patient What is your living situation today?: I have a steady place to live Within the past 12 months, did the food you bought not last and you didn't have the money to get more?: Never true Within the past 12 months, did you worry whether your food would run out before you got money to buy more?: Never true Do you have trouble paying for medicines?: No Do you have trouble getting transportation to medical appointments?: No Do you have trouble paying your heating and electricity bill?: No Do you have trouble taking care of your child, family member or friend?: No Are you currently unemployed and looking for a job?: No Are you interested in more education?: Yes Please select the resources that you would like help with: None Currently or been in a relationship where the following occur: I choose not to answer THRIVE Score: 0 AUDIT C Alcohol Use Questionnaire (AUDIT-C) 1. How often do you have a drink containing alcohol?: Never Total Score: 0 JESICA-7 AMB Questionnaire JESICA-7 Date JESICA - 7 assessed: 12/30/24 Feeling nervous, anxious, or on edge: 3 = Nearly every day Not being able to stop or control worryin = Nearly every day Worrying too much about different things: 0 = Not at all Trouble relaxin = Not at all Being so restless that it is hard to sit still: 3 = Nearly every day Becoming easily annoyed or irritable: 3 = Nearly every day Feeling afraid as if something awful might happen: 0 = Not at all Total JESICA-7 score (0-4 normal; 5-9 mild; 10-14 moderate; 15-21 severe): 12 Source: Developed by Drs. Amrit Chen, Nadine Zarate, Yvan Hope and colleagues, with an educational gary from [employer]. Physical exam (Primary Care) Vital Signs: Last Vital Signs Temp 97.2 F 01/13/25 09:52 Pulse 56 01/13/25 09:52 Resp 16 01/13/25 09:52 BP 149/66 H 01/13/25 09:52 Pulse Ox 93 01/13/25 09:52 Oxygen Delivery Method Room Air 01/13/25 09:52 BMI result Body Mass Index 29.1 Tobacco/Smoking Status: Tobacco use Status Tobacco use date assessed 12/30/24 01/13/25 09:53 Patient Tobacco Use Status Never used Tobacco 01/13/25 09:53 PHQ-9: PHQ-9 Score PHQ-9: Total score 8 01/13/25 10:01 Depression Screening Interpretation: Negative Thrive Assessment: Date of Thrive Assessment Date Thrive assessed 12/30/24 01/13/25 09:53 Currently or been in a relationship where the following occur: I choose not to answer Coding Level of Care Code Est Pt Level 4 (13918) Diagnoses Esophageal varices I85.00 Ascites R18.8 Thrombocytopenia D69.6 Elevated liver enzymes R74.8 Paresthesia R20.2 Restless leg syndrome G25.81 Splenic varices I86.8 Emphysema (subcutaneous) (surgical) resulting from a procedure T81.82XA Prediabetes R73.03 Assessment & Plan Assessment & Plan (1) Esophageal varices: Code(s): I85.00 - Esophageal varices without bleeding Category: Medical (2) Ascites: Code(s): R18.8 - Other ascites Category: Medical (3) Thrombocytopenia: Code(s): D69.6 - Thrombocytopenia, unspecified Category: Medical (4) Elevated liver enzymes: Code(s): R74.8 - Abnormal levels of other serum enzymes Category: Medical (5) Paresthesia: Code(s): R20.2 - Paresthesia of skin (6) Restless leg syndrome: Code(s): G25.81 - Restless legs syndrome (7) Splenic varices: Code(s): I86.8 - Varicose veins of other specified sites (8) Emphysema (subcutaneous) (surgical) resulting from a procedure: Code(s): T81.82XA - Emphysema (subcutaneous) resulting from a procedure, initial encounter (9) Prediabetes: Code(s): R73.03 - Prediabetes Plan Orders: Orders US abdomen limited Today R74.8 - Abnormal levels of other serum enzymes Referrals Gastroenterology Referral D69.6 - Thrombocytopenia, unspecified, I85.00 - Esophageal varices without bleeding, R18.8 - Other ascites, R74.8 - Abnormal levels of other serum enzymes Neurology Referral G25.81 - Restless legs syndrome, R20.2 - Paresthesia of skin Hematology & Oncology Referral D69.6 - Thrombocytopenia, unspecified
== END 2025-01-13 10:19 | disposition home or self-care (01) ==
LOC: HO.HMCFMS 09:48
PROVIDERS: PCP Internal Medicine; Visit Provider Student in an Organized Health Care Education/Training Program
DX: I85.00 Esophageal varices without bleeding (principal); R18.8 Other ascites; D69.6 Thrombocytopenia, unspecified; R74.8 Abnormal levels of other serum enzymes; R20.2 Paresthesia of skin; G25.81 Restless legs syndrome; I86.8 Varicose veins of other specified sites; T81.82XA Emphysema (subcutaneous) resulting from a procedure, initial encounter; R73.03 Prediabetes

== ENCOUNTER → 2025-01-13 09:47 | Outpatient (BNVA) | payer MEDICARE, SELFPAY | PROVIDERS: PCP Internal Medicine; Visit Provider Student in an Organized Health Care Education/Training Program | DX: R74.8 Abnormal levels of other serum enzymes (principal); D69.6 Thrombocytopenia, unspecified; I85.00 Esophageal varices without bleeding; R18.8 Other ascites; R20.2 Paresthesia of skin; G25.81 Restless legs syndrome; I86.8 Varicose veins of other specified sites; R73.03 Prediabetes; T81.82XD Emphysema (subcutaneous) resulting from a procedure, subsequent encounter | CPT/HCPCS: 99212 ==

== ENCOUNTER 2025-01-20 10:30 | Outpatient (AMB) | payer MEDICARE, SELFPAY ==
--- NOTE | 2025-01-20 10:32 | A.OFFVIS_ITS ---
Vital Signs 01/20/25 10:33 Height 5 ft 8.5 in Weight 189 lb 6 oz BMI 28.4 BP 138/70 Blood Pressure Location Rt brachial Position Sitting Pulse 56 Pulse Source Pulse Oximeter Pulse Oximetry (%) 98 Oxygen Delivery Method Room Air Intake Visit Reasons: INP-RLS, Paresthesia of skin Intake Note: RLS, paresthesia of skin Genetic Engineer Required: No Accompanied by: Self / Same As Patient Allergies No Known Allergies Allergy (Verified 01/20/25 10:36) Medication List - Last Reconciled 01/20/25 by Jamilah Peterson MD albuterol sulfate 90 mcg/actuation 2 puffs inhalation Q6H PRN furosemide 40 mg PO DAILY gabapentin 400 mg PO BID metoprolol succinate ER 25 mg PO DAILY montelukast 10 mg PO BEDTIME omeprazole 20 mg PO DAILY spironolactone 100 mg PO DAILY HPI Comments Details: 69y/o male comes for further management of restless legs syndrome and new c/o tingling in Right UE. He was diagnosed with Restless legs syndrome 1 year ago . His symptoms( 3-4 years ) were foot cramping L>R at rest and sleep- associated with pain .It is worse when it is cold - standing up can help.sometime she walks around the house.He was given gabapentin 300mg qhs which helped initially but 300mg tid helps - but he very off balance. He tried 400mg bid helped without side effects.No sensory symptoms in the legs.He reports multiple injuries to his left LE when he was younger.He has back pain - fairly controlled. No abnormal leg movements. 2 years ago he started having episodes of tingling starts in the right fingers and radiates up and is uncomfortable - episodic . He has neck pain occasionally.He also has numbness. [facility] Medical History (Updated 01/20/25 @ 11:07 by Jamilah Peterson MD) Restless legs syndrome (RLS) Tingling of right upper extremity Restless legs syndrome (RLS) Esophageal varices Elevated liver enzymes Thrombocytopenia Establishing care with new doctor, encounter for Diabetes Ascites Family History Father Dementia Lung cancer Mother Heart attack Diabetes Social History Housing: Apartment Alcohol intake: current Alcohol intake frequency: holidays/special occasions only Patient Tobacco Use Status: Never used Tobacco Substance Use Type: Marijuana service: No Current occupational status: retired Cognitive needs: No Hearing needs: No Vision needs: No Physical Exam Vital Signs: Last Vital Signs Pulse 56 01/20/25 10:33 BP 138/70 01/20/25 10:33 Pulse Ox 98 01/20/25 10:33 Oxygen Delivery Method Room Air 01/20/25 10:33 BMI result Body Mass Index 28.4 Const General: cooperative, comfortable and no acute distress Nutritional Appearance: average body habitus Orientation/consciousness: patient oriented x3 Eyes Pupils: Equal, round and reactive pupils present Neuro General: patient oriented x3, gait normal, tone normal, moves all extremities an d no focal motor deficits Cranial nerves: Yes Facial sensation intact/muscles of mastication intact, Yes Equal, round and reactive pupils present, Yes Bilaterally intact EOM present, Yes Nystagmus not present, Yes Normal facial strength present and Yes Midline tongue present Cognition (Neuro): normal cognition Gait exam (Neuro): Normal gait present Motor exam (neuro): 5/5 motor strength present throughout and Normal motor muscle tone present throughout Deep tendon reflexes (DTR's): Right triceps reflex intensity grade: 1+, Left triceps reflex intensity grade: 1+, Rt Biceps (C5, C6): 1+, Left biceps reflex intensity grade: 1+, Right brachioradialis reflex intensity grade: 1+, Left brachioradialis reflex intensity grade: 1+, Right patellar reflex intensity grade: 1+ and Left patellar reflex intensity grade: 1+ Coordination: [id number] test normal Assessment & Plan Assessment & Plan (1) Restless legs syndrome (RLS): Comment: Foot cramps Code(s): G25.81 - Restless legs syndrome Category: Medical (2) Tingling of right upper extremity: Code(s): R20.2 - Paresthesia of skin Category: Medical Plan I suggested to increase gabapentin to 400mg bid Check ferritin level EMG NCS Right Ue tor/o compression neuropathies Orders: Orders NE electromyogram (EMG) Today R20.2 - Paresthesia of skin NE nerve conduction velocity Today R20.2 - Paresthesia of skin Ferritin Today G25.81 - Restless legs syndrome Medications: New gabapentin 400 mg PO BID 60 caps 6RF Coding Level of Care Code New Pt Level 4 (61629) Diagnoses Restless legs syndrome (RLS) G25.81 Tingling of right upper extremity R20.2
[2025-01-20 10:33] VITALS: BP 138/70; PULSE 56; O2SAT 98; BMI 28.4
--- OUTSIDE RECORDS SUMMARY | 2025-01-20 12:29 | XMS_ITS | Encounter Summary ---
Author Organization [facility] Address [address] [place] [address] Care Team Providers Care Painter And Decorator Apprentice Name Role Phone Dre Elias MD Primary Care Provider Reason for Visit * Reason Onset Date Comments Fall 03/11/2024 Encounter Details Date Type Department Care Team (Late st Contact Info) Description 03/11/2024 Nurse Triage Adult Medicine [facility] [place] [address] [place] [id number] Dre Elias MD [address] [place], [place] [id number] Social History Tobacco Use Types Packs/Day Years [...] traveled recently to another state outside of [place], [place], [place], [place], [place], [place], [place]? no o If yes, did you quarantine [...] of accident/Injury: No If yes, gather 3rd green party insurance information Third Democrat Information: not applicable PCP: Dre Elias MD Payor: / No coverage found. documented in this encounter Plan of Treatment Not on file documented as of this encounter Visit Diagnoses Not on filedocumented in this encounter Care Teams Painter And Decorator Apprentice Relationship Specialty Start Date End Date Dre Elias MD [address] [place] [address] PCP - General 11/15/23 10/30/24 documented as of this encounter
--- OUTSIDE RECORDS SUMMARY | 2025-01-20 12:29 | XMS_ITS | Clinical Summary ---
Author Organization [facility] Address [address] [place] [address] Care Team Providers Care Director Medical Name Role Phone Unavailable Primary Care Provider [...]
--- OUTSIDE RECORDS SUMMARY | 2025-01-20 12:29 | XMS_ITS | Clinical Summary ---
Author Organization [facility] Address [address] [place] [address] Phone Care Team Providers Care Supervisor Fiber Locking Name Role Phone Unavailable Primary Care Provider [...] Date Diagnosed Date Diabetes mellitus, type 2 ([facility] V24, [facility] V28) 01/15/2024 Morbid obesity ([facility] V24, [facility] V28) 2023 Bilateral hearing loss 12/05/2023 Bilateral inguinal hernia without obstruction or gangrene 12/05/2023 Chronic obstructive pulmonar y disease ([facility] V24, [facility] V28) 12/05/2023 Tinnitus of both ears 12/05/2023 Primary hypertension 02/14/2023 Assessment & Plan (08/21/2024 12:53 PM EDT): It appears that the patient may have been sent here for hypertension issues but his blood pressure is well-controlled on medical management Orders: Ambulatory referral to Cardiology ECG 12 lead Onychomycosis of multiple to enails with type 2 diabetes mellitus and peripheral angiopathy ([facility] V24, [facility] V28) 01/03/2022 Tobacco dependence syndrome 08/07/2021 Lumbar radiculopathy 03/29/2021 Overview (01/15/2024): Following with [facility] Severe obesity (BMI 35.0-39. 9) with comorbidity ([facility] V24, [facility] V28) 06/15/2020 Esophageal varices determine d by endoscopy ([facility] V24, [facility] V28) 02/14/2018 Overview (01/15/2024): Upper endoscopy, 12/13/2017 Portal vein thrombosis 11/29/2017 Overview (01/15/2024): Noted on ultrasound of 11/26/2017. PAD (peripheral artery disease) ([facility] V24) Assessment & Plan (04/28/2024 11:40 AM [...] time each day. Dysthymic disorder 12/28/2013 Cirrhosis ([facility]24, [facility] V28) 12/21/2013 Assessment & Plan (04/02/2024 12:57 [...] Sebaceous cyst 11/26/2013 Ascites 08/24/2013 Overview (01/15/2024): [place] by Dr. Wilson to be due to cirrhosis. DM (diabetes mellitus), type 2 with peripheral vascular complications ([facility] V24, [facility] V28) 06/29/2013 Assessment & Plan (04/28/2024 11:40 [...] context of patient's family history CAD and NE. I discussed Current concept linking hypercholesteremia with [...] Care Team Description 2024 Telephone Adult Medicine [address] [address] Dre Elias MD from Last 3 Months Immunizations Immunization Administration Dates Next Due Influenza Whole 12/13/2011,01/20/2007 Influenza trivalent, 0.5mL, preservative free (Fluarix; FluLaval; Fluzone) ages 6mo and older (Afluria) 3 years and older 01/06/2014 Influenza trivalent, with pr eservative (Fluzone; Afluria) 6mo and older 12/27/2009,01/05/2008 CellNovo SARS-CoV-2 COVID-19, mRNA, LNP-S, preservative free 07/05/2021,09/12/2020,08/22/2020 Pneumococcal polysaccharide 23 valent (Pneumovax 23) 2yo and older 04/08/2005 Td Tetanus diptheria (Tdvax) 7yo and older 03/19 Td, Unspecified 06/13/2007 Surgical History Surgery Date Site/Laterality Comments OTHER SURGICAL HISTORY PROCEDURE: ---- OTHER ----; COMMENT: Cyst resection UPPER GASTROINTESTINAL ENDOSCOPY 12/13/2017 PROCEDURE: [place] UPPER GI ENDOSCOPY PERFORMED; COMMENT: [email or web address]; small esophageal varices and mild portal hypertensive gastropathy. Medical History Medical History Date Comments Shoulder pain, left 04/26/2013 DX:Shoulder pain, left Cirrhosis (CMS/HCC V24, CMS/HCC V28) 12/21/2013 DX:Cirrhosis (HCC) Mixed hyperlipidemia 06/01/2013 DX:Mixed hy perlipidemia Ascites 08/24/2013 DX:Ascites; COMM ENT: [place] by Dr. Wilson to be due to [...] of 2 - Risk 2-dose series) 11/01/1974 RSV Immunization Adult Patients (1 - Risk 50-74 years 1-dose series) 11/01/2005 Zoster Vaccines (1 of 2) 11/01/2005 Pneumococcal Vaccine: 50+ Years (2 of 2 - PCV) 04/08/2006 04/08/2005 Hepatitis B Vaccines (1 of 3 - Risk 3-dose series) 2015 Abdominal Aortic Aneurysm (AAA) Screen 03/15/2022 Colorectal Cancer Screening: Stool Based Tests (FOBT/FIT) 03/15/2022 Hepatitis C Screening 03/15/2022 Lung Cancer Screening (Low Dose CT) 03/15/2022 Medicare Annual Wellness Visit 03/15/2022 Social Influencers of Health Screening 03/15/2022 Depression Screening 04/08/2024 Diabetes: Annual Urine Albumin-Creatinine Ratio (uACR) 07/11/2024 07/12/2023 Diabetes: Blood Sugar Control Test (HGBA1C) 10/26/2024 04/28/2024 COVID-19 Vaccine ( season) 2024 07/05/2021, 09/12/2020, 08/22/2020 Influenza Vaccine [...] mellitus), type 2 with peripheral vascular complications ([facility]/H[facility] V24, [facility] V28) PAD (peripheral artery disease) ([facility] V24) Restless leg syndrome Former smoker Encounter for screening for cardiovascular disorders HEMOGLOBIN A1C Routine 04/28/2024 11:36 AM EST DM (diabetes mellitus), type 2 with peripheral vascular complications ([facility]/HCC V24, CMS/HCC V28) PAD (peripheral artery disease) ([facility] V24) Restless leg syndrome Former smoker Encounter [...] mg/dL LAB CHEMISTRY METHOD 04/28/2024 3:23 PM [facility] LDL Calculated 126(H) 0 - 100 mg/dL LAB CHEMISTRY METHOD 04/28/2024 3:23 PM [facility] VLDL Cholesterol Jeferson 27.6 mg/dL LAB CHEMISTRY METHOD 04/28/2024 3:23 PM [facility] Non HDL Chol. (LDL+VLDL) 154(H) <145 mg/dL LAB CHEMISTRY METHOD 04/28/2024 3:23 PM [facility] Chol/HDL Ratio 3.2 0.0 - 4.4 LAB CHEMISTRY METHOD 04/28/2024 3:23 PM [facility] Blood Venous blood specimen / Unknown Venipuncture / Unknown 04/28/2024 11:36 AM EST 04/28/2024 11:36 AM EST Alexa Figueroa PREPARATION SUPERVISOR LAB BLOOD ORDERABLES Final R esult Performing Organization Address City/[facility]/ZIP Co de Phone Number [facility] [address] [place] [address], [place] [phone] * Hemoglobin A1c (04/28/2024 11:36 AM EST) Hemoglobin A1C 6.3 <6.5 % LAB CHEMISTRY METHOD 04/28/2024 5:51 PM EST [facility] Mean Bld Glu Estim. 134 mg/dL LAB CHEMISTRY METHOD 04/28/2024 5:51 PM EST [facility] Blood Venous blood specimen / Unknown Venipuncture / Unknown 04/28/2024 11:36 AM EST 04/28/2024 11:36 AM EST Alexa Figueroa PREPARATION SUPERVISOR LAB BLOOD ORDERABLES Final R esult Performing Organization Address City/[facility]/ZIP Co de Phone Number [facility] [address] [place] [address], [place] [phone] * (ABNORMAL) Comprehensive metabolic panel (04/28/2024 11:36 AM EST) Sodium 132(L) 133 - 145 mmol/L LAB CHEMISTRY METHOD 04/28/2024 3:23 PM [facility] Potassium 4.0 3.5 - 5.5 mmol/L LAB CHEMISTRY METHOD 04/28/2024 3:23 PM [facility] Chloride 95(L) 96 - 110 mmol/L LAB CHEMISTRY METHOD 04/28/2024 3:23 PM [facility] CO2 29 21 - 32 mmol/L LAB CHEMISTRY METHOD 04/28/2024 3:23 PM [facility] Anion Gap 8 3 - 11 LAB CHEMISTRY METHOD 04/28/2024 3:23 PM [facility] Glucose 190(H) 70 - 100 mg/dL LAB CHEMISTRY METHOD 04/28/2024 3:23 PM [facility] BUN 18 5 - 25 mg/dL LAB CHEMISTRY METHOD 04/28/2024 3:23 PM [facility] Creatinine 0.93 0.70 - 1.30 mg/dL LAB CHEMISTRY METHOD 04/28/2024 3:23 PM [facility] eGFR 89 >=60 mL/min/1. 73m2 LAB CHEMISTRY METHOD 04/28/2024 3:23 PM [facility] Comment:Calculation based on the Chronic Kidney Disease Epidemiology Collaboration (CKD-EPI) equation refit without adjustment for race. BUN/Creatinine Ratio 19.4 LAB CHEMISTRY METHOD 04/28/2024 3:23 PM [facility] Calcium 8.9 8.5 - 10.5 mg/dL LAB CHEMISTRY METHOD 04/28/2024 3:23 PM [facility] AST (SGOT) 33 10 - 42 unit/L LAB CHEMISTRY METHOD 04/28/2024 3:23 PM [facility] ALT (SGPT) 39 10 - 60 [...] mg/dL LAB CHEMISTRY METHOD 04/28/2024 3:23 PM [facility] Blood Venous blood specimen / Unknown Venipuncture / Unknown 04/28/2024 11:36 AM EST 04/28/2024 11:36 AM EST Alexa Figueroa PREPARATION SUPERVISOR LAB BLOOD ORDERABLES Final R esult [facility] [address] [place] [address], from Last 3 Months or Most Recently Relevant [place] [phone] MEDICARE HUMAN
--- OUTSIDE RECORDS SUMMARY | 2025-01-20 12:29 | XMS_ITS | Patient Health Record ---
Author Organization [facility] Address [address] [place] [address] Care Team Providers Care Saddle Tree Stitcher Name Role Phone Krishan Kumar MD Primary Care Provider Unavail able Amrit Roper Unavailable [phone] Reason For Referral No Information Medications Medication SIG (Take, Route, Frequency, Duration) Notes Start Date End Date Status Ciclopirox 0.77 % 1 application to affected area Externally Twice a day/prn Active Furosemide 40 MG 1 tablet Orally Once a day; Duration: 90 days 06/15/2018 Active Spironolactone 25 MG 1 tablet Orally Onc e a day Active Montelukast Sodium 10 MG 1 tablet Orally Once a day; Duration: 30 day(s) Active Ipratropium-Albuterol 0.5-2.5 (3) MG/3ML 3 ml Inhalation every 6 hrs/prn Active Omeprazole 20 MG 1 capsule Orally Onc e a day; Duration: 30 day(s) Active Furosemide 40 MG 1 tablet Orally Once a day; Duration: 30 day(s) Active Furosemide 40 MG 1 tablet Orally Once a day; Duration: 30 day(s) 06/10/2018 Active Nadolol Active Triamcinolone [...] Problem Status W/U Status Risk Notes Problem Portal vein thrombosis (74313684) Portal vein thrombosis (I81) Active confirmed Problem Oesophageal varices without bleeding (52391262) Secondary esophageal varices without bleeding (I85.10) Active confirmed Problem Cirrhosis of liver (28022685) Unspecified cirrhosis of liver (K74.60) Active confirmed Problem Cirrhosis of liver (35557703) Other cirrhosis of liver (K74.69) Active confirmed Problem Ascites (812638331) Other ascites (R18.8) Active confirmed Plan Of Treatment Pending Test Test Name Order Date US ABD 05/21/2018 HCVVL REFLEX GENOTYPE REFLEX NS5A 2018 Insurance Providers Payer Name Payer Address Payer Phone Subscriber Number Group Number Insured Name Patient Relationship to Insured Coverage Start Date Coverage End Date [facility] [address] [place] [phone] [id number] YAKELIN MORALES Self - patient is the insured Medical (General) History Medical History History ICD Code Cirrhosis with ascites--last paracentesis was in 08/2013; portal vein thrombosis--he describes an EGD at [facility] with reported esophageal varices in 2018 Anxiety disorder Diet-controlled DM Hyperlipidemia Asthma/COPD Denies [place],CVA,renal disease Surgical History Surgery Date(Month/Year) Right wrist surgery
--- OUTSIDE RECORDS SUMMARY | 2025-01-20 12:29 | XMS_ITS | Clinical Summary ---
Author Organization [facility] Address [address] [place] [address] Care Team Providers Care Foil Wrapper Name Role Phone Raúl Ferris MD Primary Care Provider [phone] Allergies No known active allergies Medications Medication [...] age to complete this topic Care Teams Foil Wrapper Relationship Specialty Start Date End Date Raúl Ferris MD PCP - General Internal Medicine 03/28/21
== END 2025-01-20 11:09 | disposition home or self-care (01) ==
LOC: HO.HSMS 10:31
PROVIDERS: PCP Student in an Organized Health Care Education/Training Program; Visit Provider Psychiatry & Neurology Neurology
DX: G25.81 Restless legs syndrome (principal); R20.2 Paresthesia of skin
CPT/HCPCS: 99204

== ENCOUNTER → 2025-01-20 10:30 | Outpatient (BNVA) | payer MEDICARE, SELFPAY | PROVIDERS: PCP Student in an Organized Health Care Education/Training Program; Visit Provider Psychiatry & Neurology Neurology | DX: G25.81 Restless legs syndrome (principal); R20.2 Paresthesia of skin | CPT/HCPCS: 99202 ==

== ENCOUNTER → 2025-02-11 13:23 | Outpatient (BNV) | payer MEDICARE, OTHER, SELFPAY | PROVIDERS: Visit Provider Nurse Practitioner Family | DX: D61.818 Other pancytopenia (principal); I81 Portal vein thrombosis | CPT/HCPCS: 99204 ==

== ENCOUNTER 2025-02-22 14:10 | Outpatient (REF) | payer MEDICARE, OTHER, SELFPAY ==
--- NOTE | 2025-02-22 14:13 | EMG_ITS ---
Chief complaint:?Pain and tingling right hand and arm Reason for referral: R20.2 Paresthesia of skin Referred by:?Jamilah Peterson MD Procedure done: Right upper extremity NCS/EMG Right peroneal and tibial motor studies were performed with F responses. Tibial H reflexes were obtained. Right superficial peroneal and sural sensory studies and median and lateral mixed plantars sensory studies were performed an EMG needle examination was performed. Findings: Sensory and motor distal latencies amplitudes and conduction velocities were with a normal range. Late responses were normal except absent H-reflex. Needle examination did not reveal any significant abnormality. Impression: No significant abnormality noted on this study to explain right foot or ankle pain. [place] [id number] 1 extremity MTDD
--- OUTSIDE RECORDS SUMMARY | 2025-02-23 03:59 | XMS_ITS | Patient Health Record ---
Author Organization [facility] Address [address] [place] [phone] Care Team Providers Care Principal Technical Writer Name Role Phone Krishan Kumar MD Primary Care Provider Unavail able Amrit Roper Unavailable [phone] Reason For Referral No Information Medications Medication SIG (Take, Route, Frequency, Duration) Notes Start Date End Date Status Ciclopirox 0.77 % Gel 1 application to affected area Externally Twice a day/prn Active Furosemide 40 MG Tablet 1 tablet Orally Once a day; Duration: 90 days 06/15/2018 Active Spironolactone 25 MG Tablet 1 tablet Ora lly Once a day Active Montelukast Sodium 10 MG Tablet 1 tablet Orally Once a day; Duration: 30 day(s) Active Ipratropium-Albuterol 0.5-2.5 (3) MG/3ML Solution 3 ml Inhalation every 6 hrs/prn Active Omeprazole 20 MG Capsule Delayed Release 1 capsule Orally Once a day; Duration: 30 day(s) Active Furosemide 40 MG Tablet 1 tablet Orally Once a day; Duration: 30 day(s) Active Furosemide 40 MG Tablet 1 tablet Orally Once a day; Duration: 30 day(s) 06/10/2018 Active Nadolol Active Triamcinolone Acetonide 0.1 % Cream 1 application to affected area Externally Twice a day Active Immunizations Vaccine Route Administration Date Status Comme nts Influenza Unknown 05/21/2018 Refused Social History Tobacco Use: Social History Observation Description Date Details (start date - stop date) Former Smoker NA - NA Social History Drugs/Alcohol: Social Info Question Answer Notes Alcohol Screen Did you have a drink containing alcohol in the past year? Yes How often did you have a drink containing alcohol in the past year? Monthly or less (1 point) How many drinks did you have on a typical day when you were drinking in the past year? 1 or 2 drinks (0 point) How often did you have 6 or more drinks on one occasion in the past year? Never (0 point) Points 1 Interpretation Negative Tobacco Use: Social Info Question Answer Notes Tobacco Use/Smoking Patient is a former smoker How long has it been since you last smoked? 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 Nonsmoker since 12/2017, but smokes marijuana. Problems Problem Type SNOMED Code ICD Code Onset Dates Problem Status W/U Status Risk Notes Problem Portal vein thrombosis (60555556) Portal vein thrombosis (I81) Active confirmed Problem Oesophageal varices without bleeding (82133713) Secondary esophageal varices without bleeding (I85.10) Active confirmed Problem Cirrhosis of liver (69754091) Unspecified cirrhosis of liver (K74.60) Active confirmed Problem Cirrhosis of liver (00224193) Other cirrhosis of liver (K74.69) Active confirmed Problem Ascites (121411871) Other ascites (R18.8) Active confirmed Plan Of Treatment Pending Test Test Name Order Date US ABD 05/21/2018 HCVVL REFLEX GENOTYPE REFLEX NS5A 2018 Insurance Providers Payer Name Payer Address Payer Phone Subscriber Number Group Number Insured Name Patient Relationship to Insured Coverage Start Date Coverage End Date [facility] [address] [facility] [place] [phone] [id number] YAKELIN MORALES Self - patient is the insured Medical (General) History Medical History History ICD Code Cirrhosis with ascites--last paracentesis was in 08/2013; portal vein thrombosis--he describes an EGD at [facility] with reported esophageal varices in 2018 Anxiety disorder Diet-controlled DM Hyperlipidemia Asthma/COPD Denies [place],CVA,renal disease Surgical History Surgery Date(Month/Year) Right wrist surgery
== END 2025-02-22 14:11 | disposition home or self-care (01) ==
LOC: HO.NEURO 14:10
PROVIDERS: PCP Student in an Organized Health Care Education/Training Program; Visit Provider Psychiatry & Neurology Neurology
DX: R20.2 Paresthesia of skin (principal); M79.641 Pain in right hand
CPT/HCPCS: 95886; 95910

== ENCOUNTER → 2025-02-22 14:13 | Outpatient (BNV) | payer MEDICARE, OTHER, SELFPAY | PROVIDERS: PCP Student in an Organized Health Care Education/Training Program; Visit Provider Psychiatry & Neurology Neurology | DX: R20.2 Paresthesia of skin (principal) | CPT/HCPCS: 95886; 95910 ==

== ENCOUNTER 2025-03-19 08:08 | Outpatient (REF) | payer MEDICARE, OTHER, SELFPAY ==
--- NOTE | ~2025-03-19 | US_ITS ---
EXAMINATION: US ABDOMEN LIMITED CLINICAL INFORMATION: Ascites check. Elevated liver function tests.. COMPARISON: Correlated to CT dated December 26, 2016. TECHNIQUE: Real-time ultrasound and in the upper and lower quadrants of the abdomen using grayscale technique with a curvilinear transducer. FINDINGS: No gross free fluid. US/US abdomen limited IMPRESSION: No ascites. Negative exam. Electronically signed by: Yayo Alan MD 03/19/2025 09:45 AM LAN
== END 2025-03-19 08:09 | disposition home or self-care (01) ==
LOC: HO.HMGCX 08:08
PROVIDERS: PCP Student in an Organized Health Care Education/Training Program; Visit Provider Student in an Organized Health Care Education/Training Program
DX: R74.8 Abnormal levels of other serum enzymes (principal); R18.8 Other ascites
CPT/HCPCS: 76705

== ENCOUNTER → 2025-03-19 08:11 | Outpatient (BNV) | payer MEDICARE, OTHER, SELFPAY | PROVIDERS: PCP Student in an Organized Health Care Education/Training Program; Visit Provider Radiology Diagnostic Radiology | DX: R94.5 Abnormal results of liver function studies (principal) | CPT/HCPCS: 76705 ==